=== PATIENT | female | born 1995 | race Caucasian/White ===

== ENCOUNTER 2016-06-22 13:38 | Emergency (ER) | payer MEDICAID, BC ==
--- NOTE | 2016-06-22 14:27 | Emergency Department Record ---
History of Present Illness - General Chief complaint: ENT Stated complaint: SORE THROAT Time Seen by Provider: 06/22/16 14:27 Source: Patient Mode of Arrival: Ambulatory Limitations: No limitations - History of Present Illness Initial comments: The patient is here due to a ST for 5 days. The pain is now worsening. She was seen at a a few days ago and did have a neg Strep screen. She was placed on Amox but now is not better. There also is sinus congestion but no nasal drainage. The patient denies any cough, [place], or fever. MD complaint: Sore throat Onset/Timin -: Days(s) Location: Throat Severity: Moderate Severity scale (1-10): 7 Quality: Sharp Consistency: Constant, Getting worse Improves with: None Worsens with: Eating, Swallowing Associated Symptoms: Pain with swallowing, Sore throat - Related Data Home Medications Medication Instructions Recorded Confirmed Last Taken Amoxicillin [Amoxil] 875 mg PO BID 06/22/16 06/22/16 06/22/16 Ibuprofen [Motrin 600Mg] 600 mg PO Q6H 06/22/16 06/22/16 06/22/16 Pseudoephedrine HCl [Sudafed 12 120 mg PO DAILY 06/22/16 06/22/16 06/22/16 Hour] Previous Rx's Medication Instructions Recorded Prednisone [Prednisone 20Mg] 40 mg PO DAILY #8 tab 06/22/16 Allergies Allergy/AdvReac Type Severity Reaction Status Date / Time No Known Drug Allergies Allergy Verified 06/22/16 14:16 Travel Screening - Travel/Exposure Within Last 30 Days Have you traveled within the last 30 days?: No - Travel/Exposure Within Last Year Have you traveled outside the [place] in the last year?: No - Additonal Travel Details Have you been exposed to anyone with a communicable illness?: No - Travel Symptoms Symptom Screening: None Review of Systems Constitutional: Denies: Chills, Fever Eyes: Denies: Eye discharge ENT: Reports: Congestion, Throat pain Respiratory: Denies: Cough Past Medical History - SOCIAL HISTORY Smoking Status: Never smoker Alcohol Use: Occassional Drug Use: None - RESPIRATORY Hx Respiratory Disorders: No - CARDIOVASCULAR Hx Cardio Disorders: No - NEURO Hx Neuro Disorders: No - GI Hx GI Disorders: No - Hx Genitourinary Disorders: No - ENDOCRINE Hx Endocrine Disorders: No - MUSCULOSKELETAL Hx Musculoskeletal Disorders: No - PSYCH Hx Psych Problems: No - HEMATOLOGY/ONCOLOGY Hx Hematology/Oncology Disorders: No Family Medical History Any Significant Family History?: No Physical Exam - General General Appearance: Alert, Oriented x3, Cooperative, No acute distress - Head Head exam: Atraumatic, Normocephalic, Normal inspection - Eye Eye exam: Normal appearance, PERRL - ENT ENT exam: negative: Normal exam, TM's normal bilaterally (There is a R middle ear effusion.) Throat exam: Tonsillar erythema, Tonsillomegaly, Tonsillar exudate. negative: Normal inspection, R peritonsillar mass, L peritonsillar mass - Neck Neck exam: Normal inspection, Full ROM, Lymphadenopathy (Tender anterior tonsillar nodes.). negative: Meningismus, Tenderness - Respiratory Respiratory exam: Normal lung sounds bilaterally. negative: Respiratory distress - Cardiovascular Cardiovascular Exam: Regular rate, Normal rhythm, Normal heart sounds - GI/Abdominal GI/Abdominal exam: Soft, Normal bowel sounds. negative: Tenderness Course Vital Signs 06/22/16 14:19 Temperature 98.2 F Pulse Rate 110 H Respiratory 16 Rate Blood Pressure 141/80 Pulse Ox 97 - Reevaluation(s) Reevaluation #1: The patient is doing well at this time. She is taking fluids well. I did explain to her that it appears that she has [place] and not Strep throat. She is to continue the Prednisone and F/U with a PCP next week. 06/22/16 15:31 Medical Decision Making - Data Complexity MDM Data: Labs Ordered and/or Reviewed (Pos for [place].) - Lab Data Result diagrams: 06/22/16 14:42 Disposition Disposition: Discharge Clinical Impression: Mononucleosis Disposition: Home, Self-Care Condition: (1) Good Instructions: Mononucleosis (ED) Additional Instructions: Please stop the Amox. and continue the Prednisone as directed along with Tylenol or Motrin for pain. Drink plenty of fluids. Please do not participate in any contact sports for a month and please have your spleen in your abdomen rechecked prior to returning. Please recheck with a family doctor next week. Return to the ER for any increased pain, fever, trouble breathing or vomiting. Prescriptions: Prednisone [Prednisone 20Mg] 40 mg PO DAILY #8 tab Forms: Patient Portal Access Time of Disposition: 15:35
[2016-06-22] MEDS: PREDNISONE 20 MG TAB PO ONE (14:35)
[2016-06-22 14:58] LABS: HEMATOCRIT 40.7 % (35.0-47.0); HEMOGLOBIN 13.9 gm/dl (11.6-16.0); MEAN CELL VOLUME 88.1 fl (81-97); MEAN CORPUSCULAR HEMOGLOBIN 30.1 pg (27-33); MEAN CORPUSCULAR HGB CONC 34.2 g/dl (32-36); MEAN PLATELET VOLUME 10.8 fl (7.4-10.4); PLATELET COUNT 141 K/uL (130-400); RED BLOOD COUNT 4.62 M/uL (3.80-5.40); RED CELL DISTRIBUTION WIDTH 12.4 % (11.5-14.5)
== END 2016-06-22 15:30 | disposition home or self-care (01) ==
LOC: ER 13:38
DX: B27.90 Infectious mononucleosis, unspecified without complication (principal); J02.9 Acute pharyngitis, unspecified
CPT/HCPCS: 99283 ×2; 87880; 86308; 85027; J7512